=== PATIENT | female | born 1975 | race Caucasian/White ===

== ENCOUNTER 2022-10-19 18:29 | Emergency (ER) | payer OTHER ==
[2022-10-19] MEDS ORDERED: BABY ASPIRIN 81 MG CHEW PO ONE (18:32)
[2022-10-19] MEDS ORDERED: BABY ASPIRIN 81 MG CHEW ONE (18:37)
[2022-10-19] MEDS ORDERED: Sodium Chloride 0.9% 1000 ML 1,000 ML ONE (18:37)
[2022-10-19 18:43] LABS: Absolute Neutrophil Ct (ANC) 4.44 x10^3/uL (1.4-6.9); BASOPHIL % 0.6 % (0.0-0.4); Basophil (Absolute #) 0.04 x10^3/uL (0-0.4); Eosinophil % 2.8 % (0.00-5.0); Hematocrit 38.9 % (35-47); Hemoglobin 12.7 g/dL (12.0-16.0); IMMATURE GRAN # 0.05 x10^3u/L (0.00-0.03); IMMATURE GRAN % 0.7 % (0.00-0.4); Lymphocyte (Absolute #) 1.77 x10^3/uL (1.0-4.6); Mean Corpuscular Hgb Concent. 32.6 g/dL (32-36); Mean Platelet Volume 9.7 fL (7.5-11.0); Monocyte (Absolute #) 0.58 x10^3/uL (0.0-1.3); Monocytes % 8.2 % (0.0-12.0); Neutrophil % 62.7 % (36.0-66.0); Platelet Count 188 x10^3/uL (150-450); Red Blood Count 4.23 x10^6/uL (4.1-5.4); Red Cell Distribution Width 12.9 % (11.5-14.0); White Blood Count 7.1 x10^3/uL (4.0-10.5)
[2022-10-19] MEDS ORDERED: Sodium Chloride 0.9% 1000 ML 1,000 ML IV SCH (18:45)
--- NOTE | 2022-10-19 18:46 | ERPHSYRPT ---
- History of Present Illness Source: patient, family Exam Limitations: no limitations Timing/Duration: today Severity: moderate Associated Symptoms: other (Pain periorbital area and left shoulder) <STEVE DUMONT - Last Filed: 10/19/22 18:40> <YOUNG HOPPER - Last Filed: 10/19/22 21:02> - History of Present Illness Time Seen by Provider: 10/19/22 18:41 Physician History: Patient is a 47-year-old white female who presents after she was drinking a soft drink apparently got choked clutched her chest and then passed out this occurred approximately 20 minutes prior to arrival at the present time she is complaining mostly of pain in the left periorbital area and left shoulder from when she fell to the right landing on her shoulder and face. Loss of consciousness was relatively brief she did chipped some teeth. 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 At the present time other than her shoulder and face she has no complaints of pain. (STEVE DUMONT) Allergies/Adverse Reactions: No Known Drug Allergies Allergy (Unverified 10/19/22 18:31) Home Medications: Albuterol Common Canister [Ventolin Common Canister] 1 puff IH DAILY PRN PRN 10/19/22 [History] Omeprazole 10 mg PO DAILY 10/19/22 [History] - Review of Systems Constitutional: No Fever, No Chills Eyes: No Symptoms Ears, Nose, & Throat: No Symptoms Respiratory: No Cough, No Dyspnea Cardiac: No Chest Pain, No Edema, No Syncope Abdominal/Gastrointestinal: No Abdominal Pain, No Nausea, No Vomiting, No Diarrhea Genitourinary Symptoms: No Dysuria Musculoskeletal: No Back Pain, No Neck Pain Skin: No Rash Neurological: No Dizziness, No Focal Weakness, No Sensory Changes Psychological: No Symptoms Endocrine: No Symptoms All Other Systems: Reviewed and Negative <STEVE DUMONT - Last Filed: 10/19/22 18:40> - Female History Hx Now: No <STEVE DUMONT - Last Filed: 10/19/22 18:40> - Physical Exam General Appearance: mild distress Eye Exam: PERRL/EOMI, other (Swelling and redness left periorbital area) Ears, Nose, Throat Exam: normal ENT inspection, TMs normal, pharynx normal, moist mucous membranes Neck Exam: normal inspection, non-tender, supple, full range of motion Respiratory Exam: normal breath sounds, lungs clear, No respiratory distress Cardiovascular Exam: regular rate/rhythm, normal heart sounds, normal peripheral pulses Gastrointestinal/Abdomen Exam: soft, normal bowel sounds, No tenderness, No mass Back Exam: normal inspection, normal range of motion, No CVA tenderness, No vertebral tenderness Extremity Exam: normal inspection, normal range of motion, pelvis stable, tenderness (Left shoulder essentially full range of motion) Neurologic Exam: alert, oriented x 3, cooperative, normal mood/affect, nml cerebellar function, nml station & gait, sensation nml, No motor deficits Skin Exam: normal color, warm, dry, No rash SpO2 Interpretation: normal O2 Delivery: Room Air <STEVE DUMONT - Last Filed: 10/19/22 18:40> - Nursing Vital Signs Nursing Vital Signs: Initial Vital Signs Temperature 97.2 F 10/19/22 18:34 Pulse Rate 97 H 10/19/22 18:34 Respiratory Rate 20 10/19/22 18:34 Blood Pressure 150/108 10/19/22 18:34 O2 Sat by Pulse Oximetry 96 10/19/22 18:34 Pain Scale Pain Intensity 5 - Course Nursing assessment & vital signs reviewed: Yes EKG Interpreted by Me: RATE (104), NORMAL AXIS, Non-specific ST Changes, Other (Poor R wave progression) <STEVE DUMONT - Last Filed: 10/19/22 18:40> - Radiology Exams Left Shoulder X-ray Interpretation: Interpreted by me, Negative Chest X-ray Interpretation: Interpreted by me, Negative Facial X-ray Interpretation: Interpreted by me, Negative <YOUNG HOPPER Last Filed: 10/19/22 21:02> Ordered Tests: Active Orders 24 hr Category Date Time Status Product Representative STAT Care 10/19/22 18:47 Active EKG-ER Only STAT Care 10/19/22 18:32 Active IV Insertion STAT Care 10/19/22 18:32 Active CHEST 1 VIEW (PORTABLE) Stat Exams 10/19/22 18:33 Taken FACIAL BONES (MINIMUM 3 VIEWS) Stat Exams 10/19/22 18:37 Taken SHOULDER Stat Exams 10/19/22 18:37 Taken AMYLASE Stat Lab 10/19/22 18:40 Completed CBC W DIFF Stat Lab 10/19/22 18:32 Completed CMP Stat Lab 10/19/22 18:40 Completed LIPASE Stat Lab 10/19/22 18:40 Completed Lactic Acid Stat Lab 10/19/22 18:55 Completed NT PRO BNPII Stat Lab 10/19/22 18:40 Completed TROPONIN Q4H Lab 10/19/22 18:40 Completed TROPONIN Q4H Lab 10/19/22 22:45 Ordered TROPONIN Q4H Lab 10/20/22 02:45 Ordered UA W/RFX UR CULTURE Stat Lab 10/19/22 18:33 Ordered Medication Summary Generic Name Dose Route Start Last Admin Trade Name Freq PRN Reason Stop Dose Admin Sodium Chloride 1,000 mls @ 100 mls/hr 10/19/22 18:45 10/19/22 18:39 Sodium Chloride 0.9% 1000 Ml IV 11/18/22 18:44 100 mls/hr .Q10H JAQUELIN Administration Discontinued Medications Generic Name Dose Route Start Last Admin Trade Name Freq PRN Reason Stop Dose Admin Aspirin 324 mg 10/19/22 18:32 10/19/22 18:40 Aspirin 81 Mg Tab.Chew PO 10/19/22 18:33 324 mg STAT ONE Administration Aspirin Confirm 10/19/22 18:37 Aspirin 81 Mg Tab.Chew Administered 10/19/22 18:38 Dose 324 mg .ROUTE .STK-MED ONE Labetalol HCl 10 mg 10/19/22 20:21 10/19/22 20:24 Labetalol Hcl 20 Mg/4 Ml Disp.Syringe IV 10/19/22 20:22 10 mg STAT ONE Administration Labetalol HCl Confirm 10/19/22 20:23 Labetalol Hcl 20 Mg/4 Ml Disp.Syringe Administered 10/19/22 20:24 Dose 20 mg IV .STK-MED ONE Lab/Rad Data: Laboratory Result Diagrams 10/19/22 18:32 10/19/22 18:40 Laboratory Results 10/19/22 10/19/22 10/19/22 Range/Units 18:55 18:40 18:40 WBC (4.0-10.5) x10^3/uL RBC (4.1-5.4) x10^6/uL Hgb (12.0-16.0) g/dL Hct (35-47) % MCV (78-100) fL MCH (26-32) pg MCHC (32-36) g/dL RDW (11.5-14.0) % Plt Count (150-450) x10^3/uL MPV (7.5-11.0) fL Gran % (36.0-66.0) % Immature Gran % (Auto) (0.00-0.4) % Nucleat RBC Rel Count (0.00-0.1) % Eos # (Auto) (0-0.5) x10^3/uL Immature Gran # (Auto) (0.00-0.03) x10^3u/L Absolute Lymphs (auto) (1.0-4.6) x10^3/uL Absolute Monos (auto) (0.0-1.3) x10^3/uL Absolute Nucleated RBC (0.00-0.01) x10^3u/L Lymphocytes % (24.0-44.0) % Monocytes % (0.0-12.0) % Eosinophils % (0.00-5.0) % Basophils % (0.0-0.4) % Absolute Granulocytes (1.4-6.9) x10^3/uL Basophils # (0-0.4) x10^3/uL Sodium 138 (137-145) mmol/L Potassium 4.2 (3.5-5.1) mmol/L Chloride 102 (98-107) mmol/L Carbon Dioxide 26 (22-30) mmol/L Anion Gap 13.6 (5-15) MEQ/L BUN 13 (7-17) mg/dL Creatinine 0.64 (0.52-1.04) mg/dL Estimated GFR > 60.0 ML/MIN Glucose 140 H (74-106) mg/dL Lactic Acid 1.1 (0.4-2.0) Calcium 8.7 (8.4-10.2) mg/dL Total Bilirubin 0.70 (0.2-1.3) mg/dL AST 47 H (14-36) U/L ALT 33 (0-35) U/L Alkaline Phosphatase 65 (38-126) U/L Troponin I < 0.012 (0.000-0.034) ng/mL NT-Pro-B Natriuret Pep 88.2 (<300) pg/mL Serum Total Protein 7.6 (6.3-8.2) g/dL Albumin 4.1 (3.5-5.0) g/dL Amylase 66 (30-110) U/L Lipase 66 (23-300) U/L 10/19/22 Range/Units 18:32 WBC 7.1 (4.0-10.5) x10^3/uL RBC 4.23 (4.1-5.4) x10^6/uL Hgb 12.7 (12.0-16.0) g/dL Hct 38.9 (35-47) % MCV 92.0 (78-100) fL MCH 30.0 (26-32) pg MCHC 32.6 (32-36) g/dL RDW 12.9 (11.5-14.0) % Plt Count 188 (150-450) x10^3/uL MPV 9.7 (7.5-11.0) fL Gran % 62.7 (36.0-66.0) % Immature Gran % (Auto) 0.7 H (0.00-0.4) % Nucleat RBC Rel Count 0.0 (0.00-0.1) % Eos # (Auto) 0.20 (0-0.5) x10^3/uL Immature Gran # (Auto) 0.05 H (0.00-0.03) x10^3u/L Absolute Lymphs (auto) 1.77 (1.0-4.6) x10^3/uL Absolute Monos (auto) 0.58 (0.0-1.3) x10^3/uL Absolute Nucleated RBC 0.00 (0.00-0.01) x10^3u/L Lymphocytes % 25.0 (24.0-44.0) % Monocytes % 8.2 (0.0-12.0) % Eosinophils % 2.8 (0.00-5.0) % Basophils % 0.6 (0.0-0.4) % Absolute Granulocytes 4.44 (1.4-6.9) x10^3/uL Basophils # 0.04 (0-0.4) x10^3/uL Sodium (137-145) mmol/L Potassium (3.5-5.1) mmol/L Chloride (98-107) mmol/L Carbon Dioxide (22-30) mmol/L Anion Gap (5-15) MEQ/L BUN (7-17) mg/dL Creatinine (0.52-1.04) mg/dL Estimated GFR ML/MIN Glucose (74-106) mg/dL Lactic Acid (0.4-2.0) Calcium (8.4-10.2) mg/dL Total Bilirubin (0.2-1.3) mg/dL AST (14-36) U/L ALT (0-35) U/L Alkaline Phosphatase (38-126) U/L Troponin I (0.000-0.034) ng/mL NT-Pro-B Natriuret Pep (<300) pg/mL Serum Total Protein (6.3-8.2) g/dL Albumin (3.5-5.0) g/dL Amylase (30-110) U/L Lipase (23-300) U/L - Progress Progress: improved Counseled pt/family regarding: lab results, diagnosis, need for follow-up, rad results <YOUNG HOPPER - Last Filed: 10/19/22 21:02> - Progress Progress Note: Assumed care from Dr. Dumont at 1900. 10/19/22 19:13 10/19/22 20:22 CBC within normal limits, BMP within normal limits except for a glucose of 140, AST was elevated at 47, troponin negative, BNP within normal limits. X-rays of chest, left shoulder and facial bones were all negative for fracture or dislocation. Patient's blood pressure has been elevated since arrival. Initially it was 150/100, but it is continued to increase to >150s/>110. No evidence of end organ damage, but decision was made give IV labetalol. 10/19/22 20:37 I reevaluated the patient her left-sided facial pain is well controlled at this time. No current pain in her left shoulder. She denies any headache, numbness, tingling or weakness. She would like to go home once her blood pressure is better controlled. 10/19/22 21:01 Repeat blood pressure after 30 minutes was 114/83 patient doing well and would like to go home. I gave her strict return precautions including severe headache, lethargy, change in speech, numbness, tingling, focal weakness. (YOUNG HOPPER) Medical Desision Making - Independent Historian Additional History obtained from: Child <STEVE DUMONT - Last Filed: 10/19/22 18:40> - Diagnostic Testing Diagnostic test were ordered, analyzed, and reviewed by me: Yes Radiological Interpretation: Interpreted by me - Risk of complications Low Risk: Low risk of morbidity from additional dx testing or treatment <YOUNG HOPPER - Last Filed: 10/19/22 21:02> - Departure Departure Disposition: Home Critical Care Time: No <STEVE DUMONT - Last Filed: 10/19/22 18:40> <YOUNG HOPPER - Last Filed: 10/19/22 21:02> - Departure Clinical Impression: Syncope, Facial contusion, Hypertensive urgency Condition: Stable Referrals: DOCTOR,NO FAMILY [Primary Care Provider] - Follow up/PCP as directed Instructions: Syncope (Fainting)
[2022-10-19 19:08] LABS: ALBUMIN 4.1 g/dL (3.5-5.0); ALKALINE PHOSPHATASE 65 U/L (38-126); AMYLASE 66 U/L (30-110); ANION GAP 13.6 MEQ/L (5-15); BLOOD UREA NITROGEN 13 mg/dL (7-17); CHLORIDE 102 mmol/L (98-107); Calcium 8.7 mg/dL (8.4-10.2); Carbon Dioxide 26 mmol/L (22-30); Creatinine 1 0.64 mg/dL (0.52-1.04); EST GLOMERULAR FILTRATION RATE > 60.0 ML/MIN; Glucose 140 mg/dL (74-106); LIPASE 66 U/L (23-300); NT PRO BNPII 88.2 pg/mL (<300); Potassium 4.2 mmol/L (3.5-5.1); SGOT/AST 47 U/L (14-36); SGPT/ALT 33 U/L (0-35); SODIUM 138 mmol/L (137-145); Total Protein 7.6 g/dL (6.3-8.2)
[2022-10-19] MEDS ORDERED: TRANDATE 20 MG/4 ML SYRINGE IV ONE ×2 (20:21→20:23)
[2022-10-19 20:41] VITALS: O2SAT 96
[2022-10-19 21:03] VITALS: BP 114/83; PULSE 79
--- NOTE | 2022-10-19 22:14 | XRAY ---
Indication: Syncope. Pain following fall. Bruising and swelling. Comparison: None 3 view left shoulder demonstrates sternotomy wires. No other bony, articular, or soft tissue abnormalities.
--- NOTE | 2022-10-19 22:16 | XRAY ---
Indication: Syncope. Pain following fall. Comparison: None Portable chest demonstrates normal heart and lungs. Bony thorax intact with minimal degenerative changes throughout spine, mild levoscoliosis, and sternotomy wires. Impression: Nonacute chest with chronic bony findings.
--- NOTE | 2022-10-19 22:16 | XRAY ---
Indication: Syncope. Pain following fall. Bruising and swelling. Comparison: None 4 view facial bones demonstrates mild/moderate C2-C4 degenerative changes. No other bony, articular, or soft tissue abnormalities. Paranasal sinuses are pneumatized and clear.
== END 2022-10-19 21:13 | disposition home or self-care (01) ==
LOC: ED 18:29
DX: I16.0 Hypertensive urgency (principal); I10 Essential (primary) hypertension; R55 Syncope and collapse; S00.12XA Contusion of left eyelid and periocular area, initial encounter; W19.XXXA Unspecified fall, initial encounter; R51.9 Headache, unspecified; M25.512 Pain in left shoulder; Z79.899 Other long term (current) drug therapy
CPT/HCPCS: 36000; 36415; 70150; 71045; 73030; 80053; 82150; 83605; 83690; 83880; 84484; 85025; 93005; 93041; 96374; 99284; A9270-GY